=== PATIENT | female | born 1950 | race Caucasian/White ===

== ENCOUNTER 2024-04-28 10:11 | Outpatient (REF) | payer MEDICARE, SELFPAY ==
--- OUTSIDE RECORDS SUMMARY | 2024-04-28 12:37 | XMS_ITS | Clinical Summary ---
Author Organization [facility] Address [address] [place] [address] Care Team Providers Care Liberal Arts Dean Name Role Phone Unavailable Primary Care Provider [...] Infusion [facility] Department Of Infusion Medicine [place] [address] [place] [phone] Health Maintenance Due Date Last Done Comments [...]
--- OUTSIDE RECORDS SUMMARY | 2024-04-28 12:37 | XMS_ITS | Encounter Summary ---
Author Organization [facility] Address [address] [place] [id number] Care Team Providers Care Jailer Name Role Phone Unavailable Primary Care Provider Unavailabl e Encounter Details Date Type Department Care Team (Late st Contact Info) Description 06/11/2023 Scanned Document [facility] Department of Infusion Medicine [address] [place] [phone] Infusion Therapy, Scan Social History [...] Infusion [facility] Department Of Infusion Medicine [place] [address] [place] [phone] documented as of this encounter Visit Diagnoses Not on filedocumented in this encounter
--- OUTSIDE RECORDS SUMMARY | 2024-04-28 12:37 | XMS_ITS | Encounter Summary ---
Author Organization [facility] Address [address] [place] [address] Care Team Providers Care Military Source Operations Specialist Name Role Phone Unavailable Primary Care Provider Unavailabl e Encounter Details Date Type Department Care Team (Late st Contact Info) Description 06/22/2023 Scanned Document [facility] [place] [address] [facility] [address] [phone] Kacie Wilkinson APRN [address] [place], [place] [phone] Social History Tobacco Use Types Packs/Day Years [...] Info) Description 06/28/2024 11:30 AM EDT Infusion [facility] Department Of Infusion Medicine [place] [address] [facility] [address] [place] [phone] documented as of this encounter Visit Diagnoses Not on filedocumented in this encounter
--- OUTSIDE RECORDS SUMMARY | 2024-04-28 12:37 | XMS_ITS | Clinical Summary ---
Author Organization [facility] Address [facility] [place] [address] Care Team Providers Care President Finance [employer] Name Role Phone Unknown Primary Care Provider [...] mouth daily. Active fluticasone (FLONASE) 50 mcg/actuation [place], Suspension 1 spray daily. Act andre biotin [...] Exam Date: November 14, 2018 Accession number: [id number] Bone Density: Region ? BMD ?T-score ??Z-score [...] Exam Date: November 14, 2018 Accession number: [id number] Bone Density: Region BMD T-score Z-score Classification [...] AM EDT) Cholesterol, Total 281 mg/dL [facility] Comment: Lower Risk: <200 mg/dL Average Risk: 200-239 mg/dL Higher Risk: >nx=451 mg/dL Triglyceride 464 mg/dL [facility] Comment: Since a calculated LDL value is not valid for triglycerides greater than 400 mg/dl, a direct LDL determination is performed instead. Average Risk/Lower Risk: <150 mg/dL Borderline High Risk: 150-199 mg/dL High Risk: 200-499 mg/dL Very High Risk: >hu=510 mg/dL HDL Cholesterol 41 mg/dL [facility] Comment: Males: ?? Higher Risk: <40 mg/dL Females: ?? HIgher Risk: <50 mg/dL LDL Cholesterol 147 mg/dL [facility] Comment: Lowest Risk: <100 mg/dL Lower Risk: 100-129 mg/dL Borderline High Risk: 130-159 mg/dL High Risk: 160-189 mg/dL Very High Risk: >os=826 mg/dL Cholesterol/HDL Ratio 6.9 ratio [facility] Lipid Interpretation See Note [facility] Comment: Lipid management should be guided by a patient? s ASCVD risk, goals and preferences. ACC/AHA Guidelines recommend high intensity statin if clinical ASCVD or LDL greater than or equal to 190 mg/dL. http://Contextors.SiteJabber/UIJ-MPY-Nhrqwtsgc Adults aged 40-75 with LDL 70-189 mg/dL should have their 10 year ASCVD risk estimated with the ACC/AHA ASCVD risk convenience recycle center tech http://tools.acc.org/VNVIH-Endq-Qsdwccvbi/ Statin should be discussed if risk greater [...] Agency Comment Spec In Lab Pradeep Gonzales-Angela LEAD ESTHETICIAN CHEMISTRY O RDERABLES [facility] [address] [place] [address] * Mammo Screening Cad and Christ Bilateral [...] ??The films were also reviewed with the [employer] Computer Aided Detection System (Version 10.0). COMPARISON: None FINDINGS: The breasts are symmetric in size and are heterogeneously dense, which may obscure small masses. I see no suspicious masses or microcalcifications to suggest malignancy. Ave Solares MD IMG MAMMO ORDERABLE S * (ABNORMAL) External Pap Smear (05/24/2013 12:00 PM EDT) External PAP Smear 05/24/2013; See [employer] system for full report(Externa l Lab) [facility] RESULT CON[facility] Comment: Sourced from [facility] Conversion 05/24/2013 12:0 0 PM EDT His Peralta Provider EXTERNAL LAB ORDER SHARON [facility] RESULT CONVERSION * (ABNORMAL) External Colonoscopy (02/18/2011 9:30 AM EST) External Colonoscopy 02/18/2011 9:30:00 AM - See [employer] system for full report(Externa l Lab) [facility] RESULT [facility] Comment:Sourced from Sha [facility] Conversion 02/18/2011 9:30 AM EST His Kathryn Provider EXTERNAL GI PROCED URE RESULT [facility] RESULT CONVERSION * Hepatitis C Antibody (02/12/2003) Hepatitis C Antibody NON REACTIVE Comment:[facility] Blood specimen (specimen) 02/12/2003 Historical Provider CHEMISTRY ORDERAB LES from Last 3 Months or Most Recently Relevant to Health Maintenance Care Teams President Finance Company Relationship Specialty Start Date End Date Unknown None PCP - General 12/03/20
== END 2024-04-28 10:12 | disposition home or self-care (01) ==
LOC: HO.HOSX 10:11
PROVIDERS: PCP Internal Medicine; Referring Provider Internal Medicine; Visit Provider Physician Assistant
DX: Z13.89 Encounter for screening for other disorder (principal)
CPT/HCPCS: 99202

== ENCOUNTER 2024-04-28 10:11 | Outpatient (AMB) | payer MEDICARE, SELFPAY ==
--- NOTE | 2024-04-28 10:30 | HO.SPINEOV ---
Vital Signs 04/28/24 10:48 Height 5 ft 5 in Weight 157 lb BMI 26.1 Intake Visit Reasons: Neck pain Intake Note: Mrs. Michael is here today c/o neck and back pain. Litigation Attorney Associate Required: No Allergies Penicillins Allergy (Severe, Verified 04/28/24 10:49) Rash Sulfa (Sulfonamide Antibiotics) Allergy (Severe, Verified 04/28/24 10:49) Diarrhea Physical Exam Vital Signs: BMI result Body Mass Index 26.1 Assessment & Plan Assessment & Plan (1) Scoliosis (and kyphoscoliosis), idiopathic: Code(s): M41.20 - Other idiopathic scoliosis, site unspecified Category: Medical Plan Dear DR Loza, Thank you for referring Mrs Michael to our office today. She is a very nice 73-year-old female who has had chronic issues with her spine dating back to 1990. She had a fall in a grocery store and at that time was diagnosed with scoliotic curvature of her spine. She has had pain that runs from the base of her neck all the way down her spine that goes out into the area of her SI joint and hips. It has been getting steadily worse over the years. She has tried multiple rounds of conservative treatment. The only thing that seemed to help or cortisone injections that were done in [place]. She moved here to [place] and followed up with 2 separate pain management clinicians and neither really gave her much hope. She was told that she was ?too old? for any kind of procedures and that she should more less accept living the way she is. They did not offer her any more cortisone injections. One of the clinicians did give her an SI joint belt and that helped a little bit. Her pain is aggravated with prolonged sitting. She seems to do okay if she gets up and moves around but even then standing or walking for any length of time can be uncomfortable. She has never pain free but sitting is definitely the worst position. 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 She takes meloxicam daily. She also takes Tylenol Arthritis. She is here today to be evaluated for scoliotic curvature of her spine. PMH: She is reasonably healthy, has history of hypertension, high cholesterol, right hip replacement but no issues with cardiovascular disease, pulmonary disease, strokes, bleeding disorders, blood clots, abdominal surgery, endocrine disorders etc.. She does not report having any history of osteoporosis. She did recently have a fall and fractured her right scapula and has been in a brace for that. Social hx: She has not smoke, drink or use any recreational drugs Medications: Meloxicam, losartan, Lasix, Zetia, fenofibrate, famotidine Allergies: Penicillin, sulfa and some adhesives Physical exam: Awake alert oriented no acute distress, she is currently wearing a sling on her right arm. She has a significant mismatch in the height of her right shoulder compared to her left. Specifically right shoulders about 4-5 inches below her left shoulder. On palpation of her spine I can feel a dextroscoliosis. She has normal strength in the lower extremities with normal reflexes. Her gait is normal. Imaging review: I do not have much imaging specifically of the spine to review. 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 Impression: 73-year-old female here to be evaluated for scoliotic curvature of her spine today in the setting of chronic pain that goes from the base of her neck all the way down her spine into her lumbar area radiating out into her SI joint hips. Right now I currently do not have any focused Imaging on the spine, so I will start with a standing scoliotic x-ray series, and look a little deeper with an MRI of her thoracic and lumbar spine to see if there is any surgical option for her. She has been through all the conservative treatment as outlined above, and her quality of life is suffering significantly. I would like to see her back once the imaging is all completed. Thank you for allowing us to care for your patient. The total time spent with this visit with this patient was 45 minutes reviewing history, physical exam, trauma imaging imaging review, and implementation of treatment plan or further diagnostic testing Pradeep Caputo MD,PhD [facility] Orders: Orders XR scoliosis survey Today M41.20 - Other idiopathic scoliosis, site unspecified MR thoracic spine wo con Today M41.20 - Other idiopathic scoliosis, site unspecified XR lumbar spine 4V min Today M41.20 - Other idiopathic scoliosis, site unspecified XR thoracic spine 2V Today M41.20 - Other idiopathic scoliosis, site unspecified MR lumbar spine wo con Today M41.20 - Other idiopathic scoliosis, site unspecified Coding Level of Care Code New Pt Level 4 (50469) Diagnoses Scoliosis (and kyphoscoliosis), idiopathic M41.20
[2024-04-28 10:48] VITALS: BMI 26.1
--- OUTSIDE RECORDS SUMMARY | 2024-04-28 10:55 | XMS_ITS | Encounter Summary ---
Author Organization [facility] Address [address] [place] [id number] Care Team Providers Care Engineering Team Supervisor Name Role Phone Unavailable Primary Care Provider Unavailabl e Encounter Details Date Type Department Care Team (Late st Contact Info) Description 06/11/2023 Scanned Document [facility] Department of Infusion Medicine [address] [place] [address] Infusion Therapy, Scan Social History Tobacco Use Types Packs/Day Years Used Date Smoking Tobacco: Never Assessed Sex and Gender Information Value Date Recorded Sex Assigned at Female 06/03/2023 2:53 PM EDT Gender Identity Female 06/21/2023 11:29 AM EDT Sexual Orientation Other 06/21/2023 11 :29 AM EDT documented as of this encounter Plan of Treatment Upcoming Encounters Date Type Department Care Team (Late st Contact Info) Description 06/28/2024 11:30 AM EDT Infusion [facility] Department Of Infusion Medicine [place] [address] [place] [id number] documented as of this encounter Visit Diagnoses Not on filedocumented in this encounter
--- OUTSIDE RECORDS SUMMARY | 2024-04-28 10:55 | XMS_ITS ---
Author Name [facility] Organization Unknown History of Medication Use Medication Directions Dispensed Refills Start Date End Date Stat us cetirizine (ZyrTEC) 10 MG tablet Take 10 mg by mouth. active Biotin 10 MG Cap Take by mouth. active Lutein 20 MG Cap Take by mouth. active inclisiran (LEQVIO) 284 MG/1.5ML prefilled syringe 284 mg 284 mg, Subcutaneous, Once, On Pebbles 12/23/23 at 1630, For 1 dose, Inject inclisiran subcutaneously into the abdomen, upper arm, or thigh. Do not inject in areas of active skin disease or injury, such as sunburns, skin rashes, inflammation, or skin infections. Inspect the medication visually before 06/22/2023 completed Vitamin E 200 units Tab Take 200 Units by mouth. active metroNIDAZOLE (METROGEL) 0.75 % topical gel Apply 1 Application topically. active Problems Problem Status Onset Date Problem Type Date of Resoluti on Source Hypercholesteremia active 2023-06-[address] [facility] Visit for counseling active 2023-06-[address] [facility]
--- OUTSIDE RECORDS SUMMARY | 2024-04-28 10:55 | XMS_ITS | Clinical Summary ---
Author Organization [facility] Address [facility] [place] [address] Care Team Providers Care Auto Mechanic Apprentice Name Role Phone Unknown Primary Care Provider Unavailabl e Allergies Active Allergy Reactions Criticality Noted Date Comments Fenofibrate 05/24/2013 Flurbiprofen 11/02/2001 Lisinopril 10/07/2016 Other reaction(s): cough Penicillins Diarrhea 08/15/2015 Other reaction(s): passed out Patient past out Pollen Extracts Other (See Comments) 08/15/2015 Eyes itchy congestion with coughing Pravastatin 05/24/2013 Rosuvastatin 05/15/2019 Simvastatin 05/24/2013 Sulfa (Sulfonamide Antibiotics) Rash 05/24/2013 Sulfamethoxazole-Trimet hoprim Rash 04/12/2004 Sulfur Rash Medium 08/15/2015 Rash in mouth Medications Medication Sig Dispensed Refills Start Date End Date Status cetirizine (ZYRTEC) 10 mg Tablet Take 10 mg by mouth daily. Active fluticasone (FLONASE) 50 mcg/actuation [place], Suspension 1 spray daily. Act andre biotin 300 mcg Tablet Take by mouth daily. Active Lutein 10 mg Tablet Take 1 tablet by mouth daily. Active triamcinolone (KENALOG) 0.1 % CreamIndications:Co ntact dermatitis, unspecified contact dermatitis type, unspecified trigger Apply 1 each topically 3 times daily. 45 g 1 11/17/2018 Active meloxicam (MOBIC) 7.5 mg Tablet TAKE 1 TABLET BY MOUTH EVERY DAY 30 tablet 5 01/09/2019 Active Additional Information Patient taking differently: DAILY PRN, Reported on 02/13/2019 FLUZONE HIGH-DOSE 2019-20, PF, 180 mcg/0.5 mL Syringe TO BE ADMINISTERED BY PHARMACIST FOR IMMUNIZATION 0 12/05/2018 Active losartan-hydrochlor othiazide (HYZAAR) 100-25 mg Tablet Take 1 tablet by mouth daily. 90 tablet 3 05/15/2019 Active Active Problems Problem Noted Date Diagnosed Date Pain in toe of left foot 02/13/2019 Onychocryptosis 02/13/2019 Postmenopausal 10/21/2018 Primary osteoarthritis of right hip 01/24/2018 Pain in right hip 01/17/2018 Sprain of right upper arm 04/07/2017 Bloating 01/06/2017 Cardiomegaly 11/30/2016 Acute meniscal tear of knee 10/07/2016 Deformity of toe, acquired 10/07/2016 Onychomycosis 10/07/2016 Lumbar spondylosis 10/07/2016 Low back pain radiating to right lower extremity 10/07/2016 Greater trochanteric bursitis 10/07/2016 Myalgia, other site 09/03/2016 Scoliosis 08/07/2016 Granados angioma 05/13/2016 History of basal cell carcinoma of skin 05/14/19 17 Seborrheic keratosis 05/13/2016 Osteoarthritis of knee 02/12/2016 Essential hypertension 02/12/2016 Actinic keratosis 02/10/2016 Actinic skin damage 02/10/2016 Hyperlipidemia 12/11/2015 Renal cyst 10/02/2015 Trochanteric bursitis of right hip 08/15/2015 Abnormal MRI, spine 07/12/2015 Spinal stenosis, multilevel 06/07/2015 Cervical spondylosis 11/14/2014 Rotator cuff impingement syndrome 11/14/2014 Cataract, nuclear 12/05/2013 Carpal tunnel syndrome 12/29/2012 Insomnia 12/29/2012 Derangement of anterior horn of lateral meniscus 03/09/2007 Immunizations Name Administration Dates Next Due DT Pediatric 06/27/1999 Influenza (Fluzone HD) Trivalent High Dose 12/05,01/16/2018,12/11/2015 Influenza Quadrivalent, Preservative Free 2016 Influenza Unspecified Formulation 03/16/2012, Pneumococcal 13-Valent Conju gate (Prevnar 13) 10/02/2015 Pneumococcal 23-Valent Polys accharide (Pneumovax 23) 04/07/2017 Tdap (Adacel, Boostrix) 07/09/2010 Family History Medical History Relation Comments Breast Cancer Neg Hx Glaucoma Neg Hx Macular Degeneration Neg Hx Retinal Detachment Neg Hx Social History Tobacco Use Types Packs/Day Years Used Date Smoking Tobacco: Never Smokeless Tobacco: Never Alcohol Use Standard Drinks/Week Comments No 0 (1 standard drink = 0.6 oz pur e alcohol) Sex and Gender Information Value Date Recorded Sex Assigned at Not on file Gender Identity Not on file Sexual Orientation Not on file Last Filed Vital Signs Vital Sign Reading Time Taken Comments Blood Pressure 160/80 05/15/2019 3:21 PM EDT Pulse 76 05/15/2019 3:21 PM EDT regul ar Temperature 35.9 ??C (96.6 ??F) 02/13/2019 12:[address] Respiratory Rate 16 03/03/2018 2:42 PM EST Oxygen Saturation 97% 02/13/2019 12:57 PM EST Inhaled Oxygen Concentration - - Weight 85.3 kg (188 lb) 05/15/2019 3:21 PM EDT Height 167 cm (5' 5.75 ) 04/12/2019 10:43 AM EST Body Mass Index 30.58 04/12/2019 10:43 AM EST Plan of Treatment Health Maintenance Due Date Last Done Comments CT Colonography 1950 FIT DNA 1950 FIT 1950 Sigmoidoscopy (10 year) with FIT yearly 1950 Sigmoidoscopy 1950 Zoster vaccine (1 of 2) 1998 Advance Directive 09/11/2003 Tetanus/Diphtheria/Pertussis Vaccines (3 - Td or Tdap) 07/09/2020 07/09/2010, 06/27/1999 Colonoscopy 02/18/2021 02/18/2011 Colorectal Cancer Screening 02/18/2021 Lipid Screening 06/02/2023 06/01/2018 RSV Vaccine (1 - 1-dose 75+ series) 09/11/2023 Covid-19 Vaccine ( - 2023-2 5 season) 2023 Influenza (Flu) vaccine (1 o f 1 - Influenza standard series) 11/07/2023 12/05/2018, 01/16/2018, 01/06/2017, Additional history exists Bone Density Scan 11/14/2033 11/14/2018 Hepatitis C Screening Completed 02/12/2003 PAP Smear Discontinued 05/24/2013, 09/25/2010 Pneumoccocal Vaccine: 50+ Completed 04/07/2017, Breast Cancer screening Discontinued 05/28/19 18, 10/09/2015, 05/30/2013, Additional history exists Procedures Procedure Name Priority Date/Time Associated Diagnosis Comments DXA CENTRAL SPINE, HIP, AND/OR WHOLE BODY (GENERIC) Routine 11/14/2018 1:16 PM EDT Postmenopausal LIPID PANEL (REFLEX DIRECT LDL) Routine 06/01/2018 9:30 AM EDT Hyperlipidemia, unspecified hyperlipidemia type MAMMO SCREENING CAD AND CHRIST BILATERAL Routine 05/27/2017 10:19 AM EDT Screening breast examination EXTERNAL PAP SMEAR RESULT PANEL Routine 05/24/2013 12:00 PM EDT EXTERNAL COLONOSCOPY RESULT Routine 02/18/2011 9:30 AM EST HEPATITIS C ANTIBODY Routine 02/12/2003 from Last 3 Months or Most Recently Relevant to Health Maintenance Results * DXA Central Spine, Hip, and/or Whole Body (Generic) (11/14/2018 1:16 PM EDT) Anatomical Region Laterality Modality C-spine, Hip N/A Other 11/14/2018 Narrative 11/28/2018 11:41 AM EDT ? Bone Density Report ? Name: ?Ching Michael Age: ? 68 Sex: ? Female Ethnicity: ? White Date of : 1950 Indication: postmenopausal; screening for osteoporosis; parental hip fracture; Referring Provider: PRADEEP CRUM Study: Bone densitometry was performed. Quality of study: ??Adequate for interpretation. Exam Date: November 14, 2018 Accession number: [id number] Bone Density: Region ? BMD ?T-score ??Z-score ?? Classification AP Spine (L1-L4) ? 0.988 ?? -0.5 ?1.6 ? Normal Femoral Neck (Left) ?0.791 ?? -0.5 ?1.3 ? Normal Total Hip (Left) ? 0.896 ?? -0.4 ?1.1 ? Normal World Health Organization criteria for BMD impression classify patients as: Normal (T-score at or above -1.0), Osteopenia (T-score between -1.0 and -2.5), or Osteoporosis (T-score at or below -2.5). 10-year Fracture Risk: FRAX not reported because: ??All T-scores at or above -1.0 Previous Exams: Region ??Exam ? Age ??BMD ?? T-score ??BMD Change ? BMD Change ?Date ?g/cm2 ?vs Baseline ?vs Previous AP Spine(L1-L4) ? 11/14/2018 ??68 ??0.988 ?-0.5 ?-4.8%* ?0.2% ? 10/29/2010 ??60 ??0.986 ?-0.6 ?-5.0%* ? -5.0%* ? 02/08/2001 ??50 ??1.038 ?-0.1 ? Total Hip(Left) ? 11/14/2018 ??68 ??0.896 ?-0.4 ?-1.0% ?5.5%* ? 10/29/2010 ??60 ??0.850 ?-0.8 ?-6.1%* ? -6.1%* ? 02/08/2001 ??50 ??0.905 ?-0.3 ? Femoral Neck(Left) ? 11/14/2018 ??68 ??0.791 ?-0.5 ?-0.9% ?6.9%* ? 10/29/2010 ??60 ??0.740 ?-1.0 ?-7.3%* ? -7.3%* ? 02/08/2001 ??50 ??0.799 ?-0.5 ? *Denotes significance at 95% confidence level, site specific LSC for AP Spine = 0.021 g/cm2, ??site specific LSC for Total Hip = 0.021 g/cm2 ? Clinical Information Provided by Patient: Parent has had a hip fracture Menopause Age: 46 Onset of menses at age 11 Impression: The patient has normal bone mass. The patient has risk factors, including: parental hip fracture. The BMD for the Total Hip(Left) significantly increased by 5.5% since the last DXA exam. The BMD for the Femoral Neck(Left) significantly increased by 6.9% since the last DXA exam. Discussion: BONE DENSITY IS ABOVE THE MINIMUM DESIRABLE LEVEL AT ALL SKELETAL SITES TESTED. This patient? s bone mineral density is above the minimum desirable level (T-score -1.0 or better) at all sites measured. The patient should follow a healthful lifestyle (good nutrition with adequate calcium and vitamin D, and appropriate weight-bearing exercise). Follow-Up: Consider repeating this study in 5 years or sooner if there is some new clinical indication. Reported by: Comfort Linder DO on 11/26/2018 10:20:00 AM. Procedure Note Comfort Linder DO - 11/28/2018 Bone Density Report Name: Ching Michael Age: 68 Sex: Female Ethnicity: White Date of : 1950 Indication: postmenopausal; screening for osteoporosis; parental hip fracture; Referring Provider: PRADEEP CRUM Study: Bone densitometry was performed. Quality of study: Adequate for interpretation. Exam Date: November 14, 2018 Accession number: [id number] Bone Density: Region BMD T-score Z-score Classification AP Spine (L1-L4) 0.988 -0.5 1.6 Normal Femoral Neck (Left) 0.791 -0.5 1.3 Normal Total Hip (Left) 0.896 -0.4 1.1 Normal World Health Organization criteria for BMD impression classify patients as: Normal (T-score at or above -1.0), Osteopenia (T-score between -1.0 and -2.5), or Osteoporosis (T-score at or below -2.5). 10-year Fracture Risk: FRAX not reported because: All T-scores at or above -1.0 Previous Exams: Region Exam Age BMD T-score BMD Change BMD Change Date g/cm2 vs Baseline vs Previous AP Spine(L1-L4) 11/14/2018 68 0.988 -0.5 -4.8%* 0.2% 10/29/2010 60 0.986 -0.6 -5.0%* -5.0%* 02/08/2001 50 1.038 -0.1 Total Hip(Left) 11/14/2018 68 0.896 -0.4 -1.0% 5.5%* 10/29/2010 60 0.850 -0.8 -6.1%* -6.1%* 02/08/2001 50 0.905 -0.3 Femoral Neck(Left) 11/14/2018 68 0.791 -0.5 -0.9% 6.9%* 10/29/2010 60 0.740 -1.0 -7.3%* -7.3%* 02/08/2001 50 0.799 -0.5 *Denotes significance at 95% confidence level, site specific LSC for AP Spine = 0.021 g/cm2, site specific LSC for Total Hip = 0.021 g/cm2 Clinical Information Provided by Patient: Parent has had a hip fracture Menopause Age: 46 Onset of menses at age 11 Impression: The patient has normal bone mass. The patient has risk factors, including: parental hip fracture. The BMD for the Total Hip(Left) significantly increased by 5.5% since the last DXA exam. The BMD for the Femoral Neck(Left) significantly increased by 6.9% since the last DXA exam. Discussion: BONE DENSITY IS ABOVE THE MINIMUM DESIRABLE LEVEL AT ALL SKELETAL SITES TESTED. This patient? s bone mineral density is above the minimum desirable level (T-score -1.0 or better) at all sites measured. The patient should follow a healthful lifestyle (good nutrition with adequate calcium and vitamin D, and appropriate weight-bearing exercise). Follow-Up: Consider repeating this study in 5 years or sooner if there is some new clinical indication. Reported by: Comfort Linder DO on 11/26/2018 10:20:00 AM. Pradeep Gonzales-Angela NUR IMG DEXA OR DERABLES * Lipid Panel (06/01/2018 9:30 AM EDT) Cholesterol, Total 281 mg/dL [facility] Comment: Lower Risk: <200 mg/dL Average Risk: 200-239 mg/dL Higher Risk: >gf=839 mg/dL Triglyceride 464 mg/dL [facility] Comment: Since a calculated LDL value is not valid for triglycerides greater than 400 mg/dl, a direct LDL determination is performed instead. Average Risk/Lower Risk: <150 mg/dL Borderline High Risk: 150-199 mg/dL High Risk: 200-499 mg/dL Very High Risk: >sf=238 mg/dL HDL Cholesterol 41 mg/dL [facility] Comment: Males: ?? Higher Risk: <40 mg/dL Females: ?? HIgher Risk: <50 mg/dL LDL Cholesterol 147 mg/dL [facility] Comment: Lowest Risk: <100 mg/dL Lower Risk: 100-129 mg/dL Borderline High Risk: 130-159 mg/dL High Risk: 160-189 mg/dL Very High Risk: >jy=922 mg/dL Cholesterol/HDL Ratio 6.9 ratio [facility] Lipid Interpretation See Note [facility] Comment: Lipid management should be guided by a patient? s ASCVD risk, goals and preferences. ACC/AHA Guidelines recommend high intensity statin if clinical ASCVD or LDL greater than or equal to 190 mg/dL. [email or web address]-HOB-Midsygzig Adults aged 40-75 with LDL 70-189 mg/dL should have their 10 year ASCVD risk estimated with the ACC/AHA ASCVD risk open claims representative http://tools.acc.org/DXLKZ-Bcqn-Xoeuqzdiz/ Statin should be discussed if risk greater than or equal to 7.5% in non-diabetics. With diabetes, moderate intensity statin is recommended if risk less than 7.5%, high intensity if risk greater than or equal to 7.5%. Annual lipid monitoring on statins is not necessary. Evaluate secondary causes of Triglycerides greater than 500 mg/dL or LDL greater than 190 mg/dL: See table 6 of ACC/AHA Guideline. Lifestyle modification is a critical component of ASCVD risk reduction. Blood specimen (specimen) 06/01/2018 9:30 AM EDT 06/01/2018 9:30 AM EDT Narrative Resulting Agency Comment Spec In Lab Pradeep Gonzales-Angela TELEPHONE ORDER CLERK ROOM SERVICE CHEMISTRY O RDERABLES [facility] [address] [place] [address] * Mammo Screening Cad and Christ Bilateral (05/27/2017 10:19 AM EDT) Anatomical Region Laterality Modality Breast Bilateral Mammography Impressions 05/27/2017 2:35 PM EDT Normal mammogram. No evidence for malignancy. ??Routine mammographic screening is recommended. BIRADS Category 1: Negative Narrative 05/27/2017 2:35 PM EDT EXAMINATION: MAMMO SCREENING CAD AND CHRIST BILATERAL CLINICAL HISTORY: routine TECHNIQUE: CC and MLO projections as well as tomography were reviewed. ??The films were also reviewed with the [employer] Computer Aided Detection System (Version 10.0). COMPARISON: None FINDINGS: The breasts are symmetric in size and are heterogeneously dense, which may obscure small masses. I see no suspicious masses or microcalcifications to suggest malignancy. Ave Solares MD IMG MAMMO ORDERABLE S * (ABNORMAL) External Pap Smear (05/24/2013 12:00 PM EDT) External PAP Smear 05/24/2013; See [employer] system for full report(Externa l Lab) [facility] RESULT CONVERSION Comment: Sourced from [employer] [place] Conversion 05/24/2013 12:0 0 PM EDT His Peralta Provider EXTERNAL LAB ORDER SHARON [facility] RESULT CONVERSION * (ABNORMAL) External Colonoscopy (02/18/2011 9:30 AM EST) External Colonoscopy 02/18/2011 9:30:00 AM - See [employer] system for full report(Externa l Lab) [facility] RESULT CONVERSION Comment:Sourced from [facility] Conversion 02/18/2011 9:30 AM EST His Kathryn Provider EXTERNAL GI PROCED URE RESULT [facility] RESULT CONVERSION * Hepatitis C Antibody (02/12/2003) Hepatitis C Antibody NON REACTIVE Comment:[facility] Blood specimen (specimen) 02/12/2003 Historical Provider CHEMISTRY ORDERAB LES from Last 3 Months or Most Recently Relevant to Health Maintenance Care Teams Auto Mechanic Apprentice Relationship Specialty Start Date End Date Unknown None PCP - General 12/03/20
--- OUTSIDE RECORDS SUMMARY | 2024-04-28 10:55 | XMS_ITS | Clinical Summary ---
Author Organization [facility] Address [address] [place] [address] Care Team Providers Care Right Of Way Man Name Role Phone Unavailable Primary Care Provider Unavailabl e Allergies Active Allergy Reactions Criticality Noted Date Comments Penicillins Other (See Comments) 06/22/2023 Patient passed out Sulfa Antibiotics Rash/Dermatitis Low 06/22/2023 Medications Medication Sig Dispensed Refills Start Date End Date Status Vitamin E 200 units Tab Take 200 Units by mouth. Active L-LYSINE PO Take 1,000 mg by mouth. Active albuterol (PROVENTIL HFA; VENTOLIN HFA) 108 (90 Base) MCG/ACT inhaler Inhale 2 puffs 4 times daily (every 6 hours) as needed. 05/26/2023 Active aspirin enteric coated (ECOTRIN LOW STRENGTH) 81 MG EC tablet Take 81 mg by mouth. Acti ve Biotin 10 MG Cap Take by mouth. Acti ve cetirizine (ZyrTEC) 10 MG tablet Take 10 mg by mouth. Ac tive ezetimibe (ZeTIA) 10 MG tablet Take 10 mg by mouth daily. 10/19/2022 Active fenofibrate (TRIGLIDE) 160 MG tablet Take 160 mg by mouth daily. 05/07/2023 Active furosemide (LASIX) 20 MG tablet Take 1 tablet by mouth daily. 12/31/2022 Active losartan (COZAAR) 100 MG tablet Take 100 mg by mouth daily. 06/12/2022 Active meloxicam (MOBIC) 15 MG tablet Take 15 mg by mouth daily. 12/03/2022 Active Lutein 20 MG Cap Take by mouth. Acti ve metroNIDAZOLE (METROGEL) 0.75 % topical gel Apply 1 Application topically. Active OMEprazole (PriLOSEC) 20 MG capsule Take 20 mg by mouth daily. 06/04/2023 Active Active Problems Problem Noted Date Diagnosed Date Visit for counseling 06/23/2023 Hypercholesteremia 06/16/2023 Family History Medical History Relation Name Comments Heart attack Maternal Grandmother Heart failure Mother Relation Name Status Comments Maternal Grandmother Mother Social History Tobacco Use Types Packs/Day Years Used Date Smoking Tobacco: Never Smokeless Tobacco: Never Tobacco Cessation:Counseling Given: Not Answered Alcohol Use Standard Drinks/Week Comments Never 0 (1 standard drink = 0.6 oz pur e alcohol) Sex and Gender Information Value Date Recorded Sex Assigned at Female 06/03/2023 2:53 PM EDT Gender Identity Female 06/21/2023 11:29 AM EDT Sexual Orientation Other 06/21/2023 11 :29 AM EDT Last Filed Vital Signs Vital Sign Reading Time Taken Comments Blood Pressure 150/74 12/23/2023 12:00 PM EDT Pulse 63 12/23/2023 12:00 PM EDT Temperature 36.3 ??C (97.4 ??F) 12/23/2023 12:00 PM E DT Respiratory Rate - - Oxygen Saturation 98% 12/23/2023 12:00 PM EDT Inhaled Oxygen Concentration - - Weight 83 kg (183 lb) 06/22/2023 11:21 AM EDT Height - - Body Mass Index - - Plan of Treatment Upcoming Encounters Date Type Department Care Team (Late st Contact Info) Description 06/28/2024 11:30 AM EDT Infusion [facility] Department Of Infusion Medicine [place] [address] [place] [phone] Health Maintenance Due Date Last Done Comments Hepatitis C Virus Screening 1950 DTaP/Tdap/Td Vaccines (1 - Tdap) 09/11/1967 Mammogram 1988 Colonoscopy 1993 Pneumococcal Vaccines 50+ (1 of 1 - PCV) 1998 Zoster (Shingles) Vaccine (1 of 2) 1998 DXA Bone Density (Females,Ages 65 and older) 2013 RSV Vaccine 60 years and older and Patients (1 - 1-dose 75+ series) 09/11/2023 Influenza Vaccine 10/07/2023 12/18/2022, , 12/17/2021, Additional history exists COVID-19 Vaccine ( season) 2023 05/27/2020, 04/29/2020 Hepatitis B Vaccines Aged Out No long er eligible based on patient's age to complete this topic
--- OUTSIDE RECORDS SUMMARY | 2024-04-28 10:55 | XMS_ITS | Encounter Summary ---
Author Organization [facility] Address [address] [place] [address] Care Team Providers Care Fish Cutter Name Role Phone Unavailable Primary Care Provider Unavailabl e Encounter Details Date Type Department Care Team (Late st Contact Info) Description 06/22/2023 Scanned Document [facility] [place] [address] [facility] [address] [phone] Kacie Wilkinson APRN [address] [place], [place] [phone] Social History Tobacco Use Types Packs/Day Years [...] Info) Description 06/28/2024 11:30 AM EDT Infusion [facility] Department Of Infusion Medicine [place] [address] [facility] [address] [place] [phone] documented as of this encounter Visit Diagnoses Not on filedocumented in this encounter
== END 2024-04-28 11:48 | disposition home or self-care (01) ==
PROVIDERS: PCP Internal Medicine; Referring Provider Internal Medicine; Visit Provider Physician Assistant
DX: M41.20 Other idiopathic scoliosis, site unspecified (principal)
CPT/HCPCS: 99204

== ENCOUNTER 2024-04-28 11:44 | Outpatient (REF) | payer MEDICARE, SELFPAY ==
--- NOTE | ~2024-04-28 | XR_ITS ---
CLINICAL HISTORY: M41.20 - Other idiopathic scoliosis, site unspecified 2 views Scoliosis Spine Comparison: None Findings: 28 degrees dextroscoliosis involving the lumbar spine when measured from the superior endplate of T12 through the superior endplate of L4. 10 degrees of levoscoliosis involving the thoracic spine measured from the superior endplate of T12 to the superior endplate of T7. No vertebral body anomalies. No significant degenerative change. IMPRESSION: Rotatory scoliosis as detailed most pronounced within the lumbar spine. This document has been electronically signed by: Jarod Westbrook MD on 05/01/2024 11:32:51
--- NOTE | ~2024-04-28 | XR_ITS ---
CLINICAL HISTORY: M41.20 - Other idiopathic scoliosis, site unspecified 3 views thoracic spine Comparison: None Findings: Mild levoscoliosis of the thoracic spine. Mild multilevel degenerative change without acute fracture or acute malalignment. IMPRESSION: No acute findings. This document has been electronically signed by: Jarod Westbrook MD on 05/01/2024 11:45:49
--- NOTE | ~2024-04-28 | XR_ITS ---
CLINICAL HISTORY: M41.20 - Other idiopathic scoliosis, site unspecified 4 views lumbar spine Comparison: None Findings: There is moderately severe dextroscoliosis. No significant anterolisthesis or retrolisthesis with flexion or extension. No acute fracture or acute malalignment. Moderate degenerative changes throughout the lumbar spine. Impression: Chronic changes. No definite acute process. This document has been electronically signed by: Jarod Westbrook MD on 05/01/2024 11:45:22
== END 2024-04-28 11:45 | disposition home or self-care (01) ==
LOC: HO.XRAY 11:44
PROVIDERS: PCP Internal Medicine; Visit Provider Physician Assistant
DX: M41.20 Other idiopathic scoliosis, site unspecified (principal)
CPT/HCPCS: 72070; 72082; 72110; 99202

== ENCOUNTER → 2024-04-28 11:49 | Outpatient (BNV) | payer MEDICARE, SELFPAY | PROVIDERS: PCP Internal Medicine; Visit Provider Radiology Vascular & Interventional Radiology | DX: M41.26 Other idiopathic scoliosis, lumbar region (principal); M51.369 Other intervertebral disc degeneration, lumbar region without mention of lumbar back pain or lower extremity pain; M41.34 Thoracogenic scoliosis, thoracic region; M51.34 Other intervertebral disc degeneration, thoracic region | CPT/HCPCS: 72070; 72082; 72110 ==